=== PATIENT | male | born 1955 | race Caucasian/White ===

== ENCOUNTER → 2023-12-31 12:08 | Outpatient (REF) | payer MEDICARE, OTHER, SELFPAY ==
[2023-12-31 13:21] LABS: % Basophils 1.3 % (0-2); % Eosinophils 5.4 % (0-6); % Immature Granulocytes 0.3 % (0-0.5); % Monocytes 8.9 % (1.7-9.3); % Neutrophils 53.1 % (42.2-75.2); Absolute Basophils 0.1 10^3/uL (0-0.2); Absolute Eosinophils 0.3 10^3/uL (0-0.7); Absolute Lymphocytes 1.8 10^3/uL (1.2-3.4); Absolute Monocytes 0.5 10^3/uL (0.1-0.6); Absolute Neutrophils 3.1 10^3/uL (1.4-6.5); Hematocrit 45.2 % (39.0-52.0); Hemoglobin 15.3 g/dL (13.0-18.0); Mean Corp Hgb Conc. 33.8 g/dL (33.0-37.0); Mean Corpuscular Hgb 31.4 pg (27.0-31.0); Mean Corpuscular Volume 92.8 fL (80.0-94.0); Mean Platelet Volume 10.2 fL (7.4-10.4); Nucleated Red Blood Cells % 0 % (-); Platelet Count 256 10^3/uL (130-400); Red Blood Cell Count 4.87 10^6/uL (4.70-6.10); Red Cell Dist. Width 12.6 % (11.5-14.5); White Blood Cell Count 5.9 10^3/uL (4.8-10.8)
[2023-12-31 13:47] LABS: Blood Urea Nitrogen 22 mg/dl (9-20); Calcium 9.6 mg/dl (8.4-10.2); Carbon Dioxide 27 mmol/L (22-30); Chloride 104 mmol/L (98-107); Glucose 99 mg/dl (70-99); Sodium 137 mmol/L (135-145); eGFR > 60.00
== END ==
LOC: REG 12:08
PROVIDERS: ATTENDING PHYSICIAN Orthopaedic Surgery
DX: Z01.818 Encounter for other preprocedural examination (principal)
CPT/HCPCS: 36415; 80048; 85025; 93005

== ENCOUNTER → 2024-12-23 12:55 | Outpatient (REF) | payer MEDICARE, OTHER, SELFPAY | LOC: HWRAD 12:55 | PROVIDERS: ATTENDING PHYSICIAN Internal Medicine Critical Care Medicine; FAMILY PHYSICIAN Family Medicine | DX: R91.8 Other nonspecific abnormal finding of lung field (principal) | CPT/HCPCS: 71250 ==